=== PATIENT | female | born 1965 | race Caucasian/White ===

== ENCOUNTER 2024-09-20 15:25 | Outpatient (CLI) | payer MEDICARE, MEDICAID ==
[~2024-09-20 15:25] MED LIST: AMLO2.5T2 PO; APIX2.5T PO; ARIP10TA15 PO; ATOR40TA PO; DICY20TA2 PO; ESTR1.25 PO; GUAN2TAB19 PO; METF-436 PO; METH-806 PO; METO50TA7 PO; OMEP20TA43 PO; POLY17PO10 PO; QUET-1 PO; TRAZ-256 PO
== END 2024-09-20 23:59 | disposition home or self-care (01) ==
LOC: MRI02 15:25
PROVIDERS: ATTEND Podiatrist Foot & Ankle Surgery
DX: S92.401A Displaced unspecified fracture of right great toe, initial encounter for closed fracture (principal); M79.671 Pain in right foot; L03.90 Cellulitis, unspecified; X58.XXXA Exposure to other specified factors, initial encounter; Y93.89 Activity, other specified; Y92.89 Other specified places as the place of occurrence of the external cause; Y99.8 Other external cause status
CPT/HCPCS: 73718

== ENCOUNTER 2025-01-09 08:46 | Day surgery (SDC) | payer MEDICARE, MEDICAID ==
[2025-01-02 14:34] LABS: BASOPHILS # (AUTO) 0.1 X10'3 (0-0.2); BASOPHILS % (AUTO) 0.7 % (0-1); EOSINOPHILS # (AUTO) 0.1 X10'3 (0-0.9); EOSINOPHILS % (AUTO) 0.6 % (0-6); LYMPHOCYTES # (AUTO) 2.1 X10'3 (1.1-4.8); LYMPHOCYTES % (AUTO) 17.6 % (21-51); MEAN CORPUSCULAR HEMOGLOBIN 29.1 PG (27.0-31.0); MEAN CORPUSCULAR HGB CONC 32.5 g/dL (33.0-36.5); MEAN CORPUSCULAR VOLUME 89.6 FL (78-98); MEAN PLATELET VOLUME 7.8 FL (7.4-10.4); MONOCYTES # (AUTO) 0.7 X10'3 (0-0.9); MONOCYTES % (AUTO) 6.3 % (2-12); NEUTROPHILS # (AUTO) 8.7 X10'3 (1.8-7.7); NEUTROPHILS % (AUTO) 74.8 % (42-75); PRE OP HEMATOCRIT 42.4 % (35.0-45.0); PRE OP HEMOGLOBIN 13.8 g/dL (12.0-16.0); PRE OP PLATELET COUNT 276 X10'3 (140-440); PRE OP WHITE BLOOD COUNT 11.7 10'3 (4.8-10.8); RED BLOOD COUNT 4.74 X10'6 (4.20-5.60); RED CELL DISTRIBUTION WIDTH 14.4 % (11.5-14.5)
[2025-01-02 14:51] LABS: ALBUMIN 3.9 G/DL (3.4-5.0); ALKALINE PHOSPHATASE 94 IU/L (46-116); CHLORIDE 106 MMOL/L (99-107); PRE OP ALT 30 U/L (30-65); PRE OP ANION GAP 9 (8-16); PRE OP AST 26 U/L (10-37); PRE OP BILIRUB, TOTAL 0.4 MG/DL (0.0-1.0); PRE OP POTASSIUM 4.1 MMOL/L (3.4-5.1); PRE OP SODIUM 141 MMOL/L (135-145); TOTAL CARBON DIOXIDE 26.3 MMOL/L (24-32)
[2025-01-02 14:56] LABS: ALBUMIN/GLOBULIN RATIO 1.1 (1.1-1.5); BLOOD UREA NITROGEN 14 MG/DL (7-18); BUN/CREATININE RATIO 14.6 (10.0-20.0); CALCIUM 9.3 MG/DL (8.5-10.1); CREATININE 0.96 MG/DL (0.40-0.90); PRE OP GLUCOSE 152 MG/DL (70-104); TOTAL PROTEIN 7.4 G/DL (6.4-8.2); eGFR 60 ML/MIN
[2025-01-09] VITALS (8 sets, daily range): BP systolic 116–145; BP diastolic 65–88; PULSE 64–83; RESP 10–16; TEMP 97; O2SAT 92–100
[~2025-01-09] VITALS: Ht 162.6 cm; Wt 81.9 kg
[2025-01-09] MEDS: ceFAZolin 2gm in dextrose, iso 50 ML IV ONE (05:30)
[~2025-01-09 08:46] MED LIST changes: -APIX2.5T PO; -ATOR40TA PO; +BUPR1FIL20; -DICY20TA2 PO; +DOCUMENT DATE & TIME OF BETA-BLOCKER PO ONE; -ESTR1.25 PO; -GUAN2TAB19 PO; +LAMO25TA5 PO; +LINA145C PO; +LISD40CA PO; -METF-436 PO; -METH-806 PO; -POLY17PO10 PO; -QUET-1 PO; +QUET25TA PO; +TEN1T PO; -TRAZ-256 PO
[2025-01-09] MEDS: famotidine 20mg tablet PO ONE (09:05)
[2025-01-09] MEDS: ringers solution, lacted 1,000 ML IV SCH (09:06)
[2025-01-09] MEDS ORDERED: BUPIVAcaine 2.5mg/ml inj 50ml vial (contains preservative) ONE (09:30)
[2025-01-09] MEDS ORDERED: povidone-iodine 10% ointment 1 APPLIC APPLIC TP ONE (09:30)
[2025-01-09] MEDS ORDERED: sevoflurane 250ml liquid IH ONE (09:40)
[2025-01-09] MEDS ORDERED: fentaNYL/PF 50MCG/1 ML 2ML syringe ONE (09:45)
[2025-01-09] MEDS ORDERED: meperidine/PF 25mg/ml syringe IV PRN (10:00)
[2025-01-09] MEDS ORDERED: hydrALAZINE 20mg/ml inj. IV PRN (10:00)
[2025-01-09] MEDS ORDERED: morphine 2 MG/ML inj. syringe IV PRN (10:00)
[2025-01-09] MEDS ORDERED: morphine 4 MG/ML inj SYRINge IV PRN (10:00)
[2025-01-09] MEDS ORDERED: labetalol 20mg/4ml (5mg/ml) syringe IV PRN (10:00)
[2025-01-09] MEDS ORDERED: HYDROmorphone/PF 0.2 MG/ML SYRINGE IV PRN ×2 (10:00)
[2025-01-09] MEDS ORDERED: ondansetron/PF 4mg/2ml inj IV PRN (10:00)
[2025-01-09] MEDS ORDERED: acetaminophen 1,000mg/100ml IV 100 ML IV PRN (10:00)
[2025-01-09] MEDS ORDERED: ringers solution, lacted 1,000 ML IV SCH (10:00)
[2025-01-09] MEDS ORDERED: LIDOcaine 2% (20mg/ml) 5ml vial ONE (10:03)
[2025-01-09] MEDS ORDERED: ROPIVAcaine 0.5% (5mg/ml) 30ml vial ONE (10:03)
[2025-01-09] MEDS ORDERED: midazolam 1 mg/ML 2ml injection ONE (10:03)
[2025-01-09] MEDS ORDERED: dexamethasone sod phosphate 4mg/ml inj. ONE (10:03)
[2025-01-09] MEDS ORDERED: propofol inj 20 ML IV ONE (10:03)
[2025-01-09] MEDS ORDERED: ondansetron/PF 4mg/2ml inj ONE (10:04)
== END 2025-01-09 11:28 | disposition home or self-care (01) ==
LOC: PAS 08:46
PROVIDERS: ATTEND Podiatrist Foot & Ankle Surgery
DX: E11.69 Type 2 diabetes mellitus with other specified complication (principal); M86.8X7 Other osteomyelitis, ankle and foot; I10 Essential (primary) hypertension; K21.9 Gastro-esophageal reflux disease without esophagitis; M19.071 Primary osteoarthritis, right ankle and foot; M06.9 Rheumatoid arthritis, unspecified; E78.5 Hyperlipidemia, unspecified; F90.9 Attention-deficit hyperactivity disorder, unspecified type; F31.9 Bipolar disorder, unspecified; G47.00 Insomnia, unspecified; F43.10 Post-traumatic stress disorder, unspecified; Z98.890 Other specified postprocedural states; Z79.899 Other long term (current) drug therapy; G89.18 Other acute postprocedural pain; I48.91 Unspecified atrial fibrillation; Z88.8 Allergy status to other drugs, medicaments and biological substances; Z90.49 Acquired absence of other specified parts of digestive tract; Z90.710 Acquired absence of both cervix and uterus; Z87.891 Personal history of nicotine dependence
CPT/HCPCS: 20220; 36415; 64450; 76942; 80053; 82948; 85025; 87070; 87075; 87102; A4618; A6402; A6449; A7000; J0690; J0735; J1100; J2003; J2250; J2405; J2704; J2795; J3010; J7030; J7120; L4360; Z7506; Z7512; Z7610; J3490